=== PATIENT | female | born 1985 ===

== ENCOUNTER → 2025-01-05 10:05 | Outpatient (CLI) | payer OTHER | END | disposition home or self-care (01) | LOC: PRENATAL 10:05 | PROVIDERS: ATTEND Obstetrics & Gynecology Maternal & Fetal Medicine | DX: O36.80X0 Pregnancy with inconclusive fetal viability, not applicable or unspecified (principal); Z36.82 Encounter for antenatal screening for nuchal translucency; O99.280 Endocrine, nutritional and metabolic diseases complicating pregnancy, unspecified trimester; O09.519 Supervision of elderly primigravida, unspecified trimester; Z3A.12 12 weeks gestation of pregnancy ==

== ENCOUNTER 2025-02-27 12:26 | Outpatient (CLI) | payer OTHER | END 2025-02-27 12:28 | disposition home or self-care (01) | LOC: PRENATAL 12:26 | PROVIDERS: ATTEND Obstetrics & Gynecology Maternal & Fetal Medicine | DX: O44.00 Complete placenta previa NOS or without hemorrhage, unspecified trimester (principal); O99.280 Endocrine, nutritional and metabolic diseases complicating pregnancy, unspecified trimester; O09.519 Supervision of elderly primigravida, unspecified trimester; Z3A.19 19 weeks gestation of pregnancy ==

== ENCOUNTER 2025-05-24 10:44 | Outpatient (CLI) | payer OTHER | END 2025-05-24 10:45 | disposition home or self-care (01) | LOC: PRENATAL 10:44 | PROVIDERS: ATTEND Obstetrics & Gynecology Maternal & Fetal Medicine | DX: O26.843 Uterine size-date discrepancy, third trimester (principal); O36.8130 Decreased fetal movements, third trimester, not applicable or unspecified; O99.283 Endocrine, nutritional and metabolic diseases complicating pregnancy, third trimester; O09.513 Supervision of elderly primigravida, third trimester; O36.5930 Maternal care for other known or suspected poor fetal growth, third trimester, not applicable or unspecified; Z3A.29 29 weeks gestation of pregnancy ==

== ENCOUNTER → 2025-06-12 10:05 | Outpatient (CLI) | payer OTHER | END | disposition home or self-care (01) | LOC: PRENATAL 10:05 | PROVIDERS: ATTEND Obstetrics & Gynecology Maternal & Fetal Medicine | DX: O26.843 Uterine size-date discrepancy, third trimester (principal); O36.8130 Decreased fetal movements, third trimester, not applicable or unspecified; O99.283 Endocrine, nutritional and metabolic diseases complicating pregnancy, third trimester; O09.513 Supervision of elderly primigravida, third trimester; O36.5930 Maternal care for other known or suspected poor fetal growth, third trimester, not applicable or unspecified; Z3A.31 31 weeks gestation of pregnancy ==